=== PATIENT | female | born 2000 | race Caucasian/White ===

== ENCOUNTER 2023-01-27 08:29 | Emergency (ER) | payer OTHER, SELFPAY ==
[2023-01-27 08:33] VITALS: BP 102/71; PULSE 72; TEMP 36.6; O2SAT 98
[2023-01-27 09:11] LABS: Hematocrit 35.6 % (35.0-49.0); Mean Corpuscular HGB Conc 33.7 g/dL (32.0-36.0); Mean Corpuscular Hemoglobin 28.8 pg (27.0-31.0); Mean Corpuscular Volume 85.6 fL (78.0-102.0); Mean Platelet Volume 10.5 fl (9.2-11.8); Platelet Count Result 225 K/mm3 (150-420); Red Blood Count 4.16 M/mm3 (4.20-5.40); Red Cell Distribution Width 12.5 % (11.6-14.4)
[2023-01-27] MEDS: SODIUM CHLORIDE 0.9% IV 1,000 ML 999 ML IV CONT (09:17)
[2023-01-27] MEDS: ONDANSETRON INJ 4 MG/2 ML VIAL IV PUSH (09:18)
[2023-01-27 09:25] LABS: Alanine Aminotransferase 11 U/L (14-59); Albumin Level 3.9 g/dL (3.4-5.0); Alkaline Phosphatase 82 U/L (46-116); Anion Gap 10 mmol/L (8-16); Aspartate Amino Transferase 11 U/L (15-37); Bilirubin,Total 0.9 mg/dL (0.00-1.00); Blood Urea Nitrogen 13 mg/dL (7-18); Calcium 8.4 mg/dL (8.5-10.1); Carbon Dioxide 26 mmol/L (21-32); Chloride 104 mmol/L (98-108); Estimated Glomerular Filt Rate > 60; Glucose 80 mg/dL (70-99); Lipase 32 U/L (16-77); Osmolality Calculated 289 mOsm/kg (285-295); Potassium 3.9 mmol/L (3.5-5.1); Sodium 140 mmol/L (136-145); Total Protein 6.8 g/dL (6.4-8.2)
[2023-01-27 09:27] LABS: Band Neutrophils Percent 0 % (0-6); Basophils Percent Manual 0 % (0-1); Eosinophils Percent Manual 15 % (1-6); Lymphocytes Absolute Manual 2.28 K/mm3 (1.1-4.5); Lymphocytes Percent Manual 38 % (18-44); Monocytes Absolute Manual 0.54 K/mm3 (0.1-0.90); Monocytes Percent Manual 9 % (3-9); Neutrophils Absolute Manual 2.28 K/mm3 (1.7-7.2); Neutrophils Percent Manual 38 % (46-73); Platelet Estimate Adequate (Adequate); Total Cells Counted 100
--- NOTE | 2023-01-27 10:12 | ED.NAVMDI ---
HPI - Nausea/Vomiting/Diarrhea General Chief complaint: Nausea/Vomiting/Diarrhea Stated complaint: nausa/vomiting Time Seen by Provider: 01/27/23 08:53 Source: patient Mode of arrival: ambulatory Limitations: no limitations History of Present Illness HPI Narrative: this is a 22-year-old female who presents with 2 week history of nausea vomiting and has recently developed loose stools with no fever chills no abdominal pain no flank pain no dysuria or hematuria no chest pain or shortness of breath. Patient does use some marijuana and states that she recently stopped about 4 5 days ago. MD elicited complaint: nausea and vomiting Onset (ago): week(s) Description of vomiting: watery Description of diarrhea: semi-solid Associated nausea: Yes Associated abdominal pain: No Related Data Allergies Allergy/AdvReac Type Severity Reaction Status Date / Time No Known Allergies Allergy Verified 01/27/23 09:01 Review of Systems Review of Systems: All systems reviewed & are unremarkable except as noted in HPI and below PMFSH Past Medical History Medical History Patient denies medical problems Exam Const: General: healthy appearing Nutritional Appearance: well nourished Orientation/consciousness: patient oriented x3 Limitations: no limitations Eyes: Conjunctivae: conjunctivae normal Pupils: Equal, round and reactive pupils present EOM: EOMs intact bilaterally Neck: Neck: normal visual inspection Chest: Chest palpation & inspection: normal inspection of the chest Resp: Effort & Inspection: normal respiratory effort Auscultation: clear to auscultation bilaterally Cardio: Rate: regular rate Rhythm: regular rhythm GI: GI Palp: Yes Soft to palpation : General: Yes bladder normal to palpation Skin: General skin exam: normal color Rashes: no rashes Wounds: no wounds Neuro: General: patient oriented x3 and moves all extremities Cranial nerves: Yes Nystagmus not present Speech: normal speech Extrem: General: normal to inspection Psych: Mental Status: mental status grossly normal Affect: normal affect Course Course Emergency Course: patient had IV fluids and IV Zofran reassessment of patient her symptoms have improved. Labs reviewed with patient including UA which were within normal limits. Vital Signs Vital signs: Vital Signs Temperature 36.6 C 01/27/23 08:33 Pulse Rate 72 01/27/23 08:33 Blood Pressure 102/71 01/27/23 08:33 Pulse Oximetry 98 01/27/23 08:33 Oxygen Delivery Room Air 01/27/23 08:33 Temperature 36.6 C 01/27/23 08:33 Pulse Rate 72 01/27/23 08:33 Blood Pressure 102/71 01/27/23 08:33 Pulse Oximetry 98 01/27/23 08:33 Oxygen Delivery Room Air 01/27/23 08:33 MDM - Nausea/Vomiting/Diarrhea Lab Data 01/27/23 09:05 01/27/23 09:05 Labs: Lab Results 01/27/23 01/27/23 Range/Units 09:05 10:08 WBC 6.0 (4.8-10.8) K/mm3 RBC 4.16 L (4.20-5.40) M/mm3 Hgb 12.0 (12.0-15.0) g/dL Hct 35.6 (35.0-49.0) % MCV 85.6 (78.0-102.0) fL MCH 28.8 (27.0-31.0) pg MCHC 33.7 (32.0-36.0) g/dL RDW 12.5 (11.6-14.4) % Plt Count 225 (150-420) K/mm3 MPV 10.5 (9.2-11.8) fl Immature Gran % (Auto) Not Reportable Neut % (Auto) Not Reportable Lymph % (Auto) Not Reportable [place] % (Auto) Not Reportable Eos % (Auto) Not Reportable Baso % (Auto) Not Reportable Lymph # (Auto) Not Reportable [place] # (Auto) Not Reportable Eos # (Auto) Not Reportable Baso # (Auto) Not Reportable Abs Immat Gran (auto) Not Reportable Absolute Neuts (auto) Not Reportable Absolute Nucleated RBC Not Reportable Total Counted 100 Neutrophils % (Manual) 38 L (46-73) % Band Neutrophils % 0 (0-6) % Lymphocytes % (Manual) 38 (18-44) % Monocytes % (Manual) 9 (3-9) % Eosinophils % (Manual) 15 H (1-6) % Basophils %
[2023-01-27 10:13] LABS: Appearance Urine Clear (Clear); Bilirubin Urine Negative (Negative); Blood Urine Negative (Negative); Color Urine Yellow (Yellow); Glucose Urine UA Negative (Negative); Ketones Urine Negative (Negative); Leukocyte Esterase Ur Negative (Negative); Nitrate Urine Negative (Negative); Protein Urine Negative (Negative); Urobilinogen Urine 0.2 mg/dL (0.2-1.0)
[2023-01-27 10:17] LABS: Add Urine Microscopic? NO
--- NOTE | 2023-01-27 10:27 | PC.NURSE ---
pt stating stomach hurting, no vomiting since arrival to er. dr gay aware of request for pain medications. awaiting all results.
[2023-01-27 10:43] LABS: Pregnancy On Board Control Positive; Urine Pregnancy Test Negative
[2023-01-27] MEDS: MAG HYDROX/ALUMINUM HYD/SIMETH 30 ML, PHENobarb/HYOSCY/ATROPINE/SCOP 32.4 MG, LIDOCAINE... PO (10:48)
[2023-01-27 10:59] VITALS: BP 104/70; PULSE 98; RESP 20; TEMP 36.9; O2SAT 98
== END 2023-01-27 11:01 | disposition home or self-care (01) ==
PROVIDERS: Emergency Provider Emergency Medicine; PCP Family Medicine
DX: K52.9 Noninfective gastroenteritis and colitis, unspecified (principal)
CPT/HCPCS: 36415; 80053; 81003; 81025; 83690; 85025; 96361; 96374; 99284; A9270; J2405; J7030